=== PATIENT | female | born 1980 | race Caucasian/White ===

== ENCOUNTER 2016-09-20 22:03 | Inpatient (IN) | payer MEDICAID, OTHER ==
[~2016-09-20] VITALS: Ht 160 cm; Wt 65.0 kg
[~2016-09-20 22:03] MED LIST: FLUO-191 PO; GABA-533 PO; QUET200T PO
[2016-09-20 23:01] LABS: BASOPHILS % (AUTO) 0.6 % (0.0-2.0); EOSINOPHILS % (AUTO) 0.9 % (1.0-6.0); HEMATOCRIT 37.2 % (36-46); LYMPHOCYTES # (AUTO) 3.3 K/uL (1.0-4.8); LYMPHOCYTES % (AUTO) 23.9 % (22.0-44.0); MEAN CORPUSCULAR HEMOGLOBIN 28.4 pg (26.0-34.0); MEAN CORPUSCULAR HGB CONC 32.2 G/dL (31.0-37.0); MEAN CORPUSCULAR VOLUME 88 fL (80-100); MONOCYTES # (AUTO) 1.3 K/uL (0.1-1.0); MONOCYTES % (AUTO) 9.4 % (2.0-9.0); NEUTROPHILS # (AUTO) 9.1 K/uL (1.8-7.7); NEUTROPHILS % (AUTO) 65.2 % (40.0-70.0); PLATELET COUNT (AUTO) 324 K/uL (150-450); RED BLOOD CELL COUNT(AUTO) 4.22 MIL/uL (4.00-5.20); RED CELL DISTRIBUTION WIDTH 15.5 % (11.5-14.5); WHITE BLOOD COUNT (AUTO) 13.9 K/uL (4.5-11.0)
[2016-09-20 23:09] LABS: ANION GAP 9 mmol/L (8-16); CALCIUM, TOTAL 8.5 mg/dL (8.8-10.5); CARBON DIOXIDE 25 mmol/L (22-29); CHLORIDE 100 mmol/L (98-107); CREATININE 1.05 mg/dL (0.60-1.30); GLOMERULAR FILTR. RATE CALC 59 mL/min (>60); POTASSIUM 3.1 mmol/L (3.5-5.1); SODIUM SERUM 134 mmol/L (136-145); UREA NITROGEN, BLOOD 9 mg/dL (7-18)
[2016-09-20 23:16] LABS: ALANINE AMINOTRANSFERASE 65 U/L (12-78); ALBUMIN 3.6 g/dL (3.4-5.0); ASPARTATE AMINOTRANSFERASE 48 U/L (15-37); BILIRUBIN,TOTAL 0.3 mg/dL (0.1-1.0); TOTAL PROTEIN, SERUM 8.1 g/dL (6.4-8.2)
[2016-09-21] MEDS ORDERED: POTASSIUM CHLORIDE 10% 40 MEQ/30 ML LIQUID UDCUP PO ONE (01:15)
[2016-09-21] MEDS ORDERED: LORazepam 2 MG/ML VIAL IM ONE (01:15)
[2016-09-21] MEDS ORDERED: HALOPERIDOL LACTATE 5 MG/ML VIAL IM ONE (02:15)
[2016-09-21] MEDS ORDERED: DiphenhydrAMINE HCL 50 MG/ML VIAL IM ONE (02:15)
[2016-09-21] MEDS ORDERED: ZOLPIDEM TARTRATE 10 MG TABLET PO PRN (02:15)
[2016-09-21] MEDS ORDERED: HALOPERIDOL 5 MG TABLET PO PRN (02:15)
[2016-09-21 02:49] LABS: APPEARANCE,URINE CLOUDY (CLEAR); GLUCOSE, URINE (UA) NEGATIVE (NEGATIVE); KETONES,URINE NEGATIVE (NEGATIVE); LEUKOCYTE ESTERASE ,URINE TRACE (NEGATIVE); OCCULT BLOOD,URINE NEGATIVE (NEGATIVE); PH,URINE 5.5 (5.0-8.0); PROTEIN,URINE NEGATIVE (NEGATIVE)
[2016-09-21 02:53] LABS: ADD UA MICROSCOPIC YES
[2016-09-21 03:02] LABS: RBC,URINE 0-2 /HPF (0-2); SQUAMOUS EPITHELIAL CELL,UR Moderate /LPF (None Seen)
[2016-09-21] MEDS: LORazepam 2 MG TABLET PO PRN ×3 (03:02→18:27)
[2016-09-21 04:49] VITALS: BP 114/69
[2016-09-21] MEDS ORDERED: INFLUENZA VIRUS VACCINE QVS 2016-17 (3YR+)/PF 60 MCG/0.5 ML SYRINGE IM ONE (05:00)
[2016-09-21] MEDS: GABAPENTIN 400 MG CAPSULE PO SCH (18:25)
[2016-09-21] MEDS ORDERED: QUEtiapine FUMARATE 200 MG TABLET PO SCH (21:00)
[2016-09-22] MEDS: GABAPENTIN 400 MG CAPSULE PO SCH (08:32)
[2016-09-22] MEDS: LORazepam 2 MG TABLET PO PRN (08:45)
[2016-09-22] MEDS ORDERED: FLUoxetine HCL 20 MG CAPSULE PO SCH (09:00)
== END 2016-09-22 11:25 | disposition home or self-care (01) | DRG 750 ==
LOC: EMS 22:06 → B3A 09-21 02:30
DX: F25.0 Schizoaffective disorder, bipolar type (principal); R45.851 Suicidal ideations; N39.0 Urinary tract infection, site not specified; G40.909 Epilepsy, unspecified, not intractable, without status epilepticus; F32.9 Major depressive disorder, single episode, unspecified; F41.9 Anxiety disorder, unspecified; K21.9 Gastro-esophageal reflux disease without esophagitis; F43.10 Post-traumatic stress disorder, unspecified; S10.91XA Abrasion of unspecified part of neck, initial encounter; S00.81XA Abrasion of other part of head, initial encounter; S20.311A Abrasion of right front wall of thorax, initial encounter; N80.9 Endometriosis, unspecified; M79.7 Fibromyalgia; E87.6 Hypokalemia; R74.0 Nonspecific elevation of levels of transaminase and lactic acid dehydrogenase [LDH]; F17.210 Nicotine dependence, cigarettes, uncomplicated; F15.90 Other stimulant use, unspecified, uncomplicated; F11.90 Opioid use, unspecified, uncomplicated; Z79.899 Other long term (current) drug therapy; Z28.21 Immunization not carried out because of patient refusal; Z88.8 Allergy status to other drugs, medicaments and biological substances; Z59.0 Homelessness; Z91.013 Allergy to seafood; Z91.018 Allergy to other foods; Z98.890 Other specified postprocedural states; Z98.51 Tubal ligation status; Z71.51 Drug abuse counseling and surveillance of drug abuser; Z91.5 Personal history of self-harm; X58.XXXA Exposure to other specified factors, initial encounter; Y93.89 Activity, other specified; Y92.89 Other specified places as the place of occurrence of the external cause; Y99.8 Other external cause status
CPT/HCPCS: 96372; 99285; G0480; J2060

== ENCOUNTER 2017-04-13 20:13 | Inpatient (IN) | payer MEDICAID ==
[~2017-04-13] VITALS: Ht 157.5 cm; Wt 69.5 kg
[~2017-04-13 20:13] MED LIST changes: +ACAM333T7 PO; +GABA-531 PO; -GABA-533 PO; -QUET200T PO; +QUET200T29 PO
[2017-04-13] MEDS ORDERED: ZOLPIDEM TARTRATE 10 MG TABLET PO PRN (23:00)
[2017-04-13] MEDS ORDERED: LORazepam 2 MG TABLET PO PRN (23:00)
[2017-04-14 00:16] VITALS: BP 110/83
[2017-04-14] MEDS ORDERED: INFLUENZA VIRUS VACCINE QVS 2017-18 (3YR+)/PF 60 MCG/0.5 ML SYRINGE IM ONE (00:30)
[2017-04-14 08:25] VITALS: BP 115/68
[2017-04-14] MEDS ORDERED: PROMETHAZINE HCL 25 MG TABLET PO PRN (12:00)
[2017-04-14] MEDS: GABAPENTIN 400 MG CAPSULE PO SCH ×3 (13:00→20:03)
[2017-04-14] MEDS: PROMETHAZINE HCL 25 MG/ML VIAL IM PRN (16:06)
[2017-04-14 16:09] VITALS: BP 125/87
[2017-04-14] MEDS: DOXYCYCLINE 100 MG CAPSULE PO SCH (16:15)
[2017-04-14] MEDS ORDERED: QUEtiapine FUMARATE 300 MG TABLET PO SCH (21:00)
[2017-04-15 06:58] VITALS: BP 117/68
[2017-04-15] MEDS: PROMETHAZINE HCL 25 MG/ML VIAL IM PRN (07:15)
[2017-04-15 08:15] VITALS: BP 104/74
[2017-04-15 08:24] LABS: BASOPHILS # (AUTO) 0.05 K/uL (0.00-0.20); BASOPHILS % (AUTO) 0.6 % (0.0-2.0); EOSINOPHILS # (AUTO) 0.21 K/uL (0.00-0.70); EOSINOPHILS % (AUTO) 2.34 % (1.0-6.0); HEMATOCRIT 38.3 % (36-46); HEMOGLOBIN 12.4 g/dL (12.0-16.0); LYMPHOCYTES # (AUTO) 2.2 K/uL (1.0-4.8); LYMPHOCYTES % (AUTO) 25.2 % (22.0-44.0); MEAN CORPUSCULAR HGB CONC 32.4 G/dL (31.0-37.0); MEAN CORPUSCULAR VOLUME 86 fL (80-100); MONOCYTES # (AUTO) 0.8 K/uL (0.1-1.0); MONOCYTES % (AUTO) 9.1 % (2.0-9.0); NEUTROPHILS # (AUTO) 5.5 K/uL (1.8-7.7); NEUTROPHILS % (AUTO) 62.8 % (40.0-70.0); PLATELET COUNT (AUTO) 398 K/uL (150-450); RED BLOOD CELL COUNT(AUTO) 4.43 MIL/uL (4.00-5.20); WHITE BLOOD COUNT (AUTO) 8.8 K/uL (4.5-11.0)
[2017-04-15 08:45] LABS: HEMOGLOBIN A1C 5.5 % (4.5-6.2)
[2017-04-15] MEDS: GABAPENTIN 400 MG CAPSULE PO SCH (08:52)
[2017-04-15] MEDS: DOXYCYCLINE 100 MG CAPSULE PO SCH (08:52)
[2017-04-15] MEDS ORDERED: QUEtiapine FUMARATE 200 MG TABLET PO SCH (09:00)
[2017-04-15] MEDS ORDERED: ESCITALOPRAM OXALATE 20 MG TABLET PO SCH (09:00)
[2017-04-15 09:02] LABS: RBC MORPHOLOGY COMMENT ABNORMAL RBC MORPH
[2017-04-15 09:10] LABS: ALANINE AMINOTRANSFERASE 78 U/L (12-78); ANION GAP 5 mmol/L (8-16); ASPARTATE AMINOTRANSFERASE 56 U/L (15-37); BILIRUBIN,TOTAL 0.4 mg/dL (0.1-1.0); CARBON DIOXIDE 31 mmol/L (22-29); CHLORIDE 101 mmol/L (98-107); CHOL/HDL RATIO 2.1 (3.9-5.7); CREATININE 0.97 mg/dL (0.60-1.30); GLOMERULAR FILTR. RATE CALC > 60 mL/min (>60); POTASSIUM 4.5 mmol/L (3.5-5.1); SODIUM SERUM 137 mmol/L (136-145); TOTAL PROTEIN, SERUM 8.6 g/dL (6.4-8.2); UREA NITROGEN, BLOOD 18 mg/dL (7-18)
[2017-04-15] MEDS ORDERED: DOXY100C PO (09:30)
[2017-04-15] MEDS ORDERED: ESCI20TA PO (09:30)
[2017-04-15] MEDS ORDERED: QUET200T PO (09:30)
[2017-04-15] MEDS ORDERED: GABA-533 PO (09:30)
[2017-04-15] MEDS ORDERED: QUET300T2 PO (09:30)
== END 2017-04-15 10:45 | disposition home or self-care (01) | DRG 751 ==
LOC: B3A 23:47
PROVIDERS: ADMIT Psychiatry & Neurology Psychiatry; ATTEND Psychiatry & Neurology Psychiatry
DX: F33.2 Major depressive disorder, recurrent severe without psychotic features (principal); E87.1 Hypo-osmolality and hyponatremia; R45.851 Suicidal ideations; F11.20 Opioid dependence, uncomplicated; G62.9 Polyneuropathy, unspecified; L02.11 Cutaneous abscess of neck; F41.9 Anxiety disorder, unspecified; M06.9 Rheumatoid arthritis, unspecified; M79.7 Fibromyalgia; F17.200 Nicotine dependence, unspecified, uncomplicated; Z88.8 Allergy status to other drugs, medicaments and biological substances; Z59.0 Homelessness; Z88.5 Allergy status to narcotic agent; Z91.013 Allergy to seafood; Z91.018 Allergy to other foods; Z98.51 Tubal ligation status; D64.9 Anemia, unspecified; Z28.21 Immunization not carried out because of patient refusal; Z98.891 History of uterine scar from previous surgery; Z91.5 Personal history of self-harm
CPT/HCPCS: 83036; 84439; 84443; 87081; 90471; J2550

== ENCOUNTER 2017-04-14 13:24 | Emergency (ER) | payer MEDICAID, OTHER ==
[~2017-04-14] VITALS: Ht 157.5 cm; Wt 69.5 kg
[2017-04-14 13:38] VITALS: BP 129/77
[2017-04-14] MEDS ORDERED: DOXYCYCLINE 100 MG CAPSULE PO ONE (15:00)
[2017-04-15] MEDS ORDERED: GABA-533 PO (09:30)
[2017-04-15] MEDS ORDERED: DOXY100C PO (09:30)
[2017-04-15] MEDS ORDERED: ESCI20TA PO (09:30)
[2017-04-15] MEDS ORDERED: QUET200T PO (09:30)
[2017-04-15] MEDS ORDERED: QUET300T2 PO (09:30)
== END 2017-04-14 15:26 | disposition home or self-care (01) ==
LOC: EMS 13:27
DX: L02.11 Cutaneous abscess of neck (principal); F19.10 Other psychoactive substance abuse, uncomplicated; K21.9 Gastro-esophageal reflux disease without esophagitis; F17.210 Nicotine dependence, cigarettes, uncomplicated; F11.90 Opioid use, unspecified, uncomplicated; Z88.6 Allergy status to analgesic agent; Z91.013 Allergy to seafood; Z88.8 Allergy status to other drugs, medicaments and biological substances; Z91.018 Allergy to other foods
CPT/HCPCS: 99283

== ENCOUNTER 2017-06-02 16:17 | Inpatient (IN) | payer MEDICAID, OTHER ==
[~2017-06-02] VITALS: Ht 157.5 cm; Wt 63.9 kg
[~2017-06-02 16:17] MED LIST changes: -ACAM333T7 PO; +DOXY100C PO; +ESCI20TA PO; -FLUO-191 PO; -GABA-531 PO; +GABA-533 PO; +QUET200T PO; -QUET200T29 PO; +QUET300T2 PO
[2017-06-02] MEDS ORDERED: DIPH50 PO (16:37)
[2017-06-02 16:50] LABS: HEMATOCRIT 32.6 % (36-46); HEMOGLOBIN 10.9 g/dL (12.0-16.0); MEAN CORPUSCULAR HEMOGLOBIN 29.4 pg (26.0-34.0); MEAN CORPUSCULAR HGB CONC 33.5 G/dL (31.0-37.0); MEAN CORPUSCULAR VOLUME 88 fL (80-100); PLATELET COUNT (AUTO) 338 K/uL (150-450); RED BLOOD CELL COUNT(AUTO) 3.72 MIL/uL (4.00-5.20); RED CELL DISTRIBUTION WIDTH 18.2 % (11.5-14.5); WHITE BLOOD COUNT (AUTO) 6.7 K/uL (4.5-11.0)
[2017-06-02 16:59] LABS: ANION GAP 8 mmol/L (8-16); CALCIUM, TOTAL 8.9 mg/dL (8.8-10.5); CARBON DIOXIDE 28 mmol/L (22-29); CHLORIDE 104 mmol/L (98-107); CREATININE 0.72 mg/dL (0.60-1.30); GLOMERULAR FILTR. RATE CALC > 60 mL/min (>60); POTASSIUM 3.7 mmol/L (3.5-5.1); SODIUM SERUM 140 mmol/L (136-145); UREA NITROGEN, BLOOD 12 mg/dL (7-18)
[2017-06-02 17:05] LABS: ALANINE AMINOTRANSFERASE 34 U/L (12-78); ALBUMIN 3.1 g/dL (3.4-5.0); ASPARTATE AMINOTRANSFERASE 32 U/L (15-37); BILIRUBIN,TOTAL 0.2 mg/dL (0.1-1.0); TOTAL PROTEIN, SERUM 7.2 g/dL (6.4-8.2)
[2017-06-02 17:37] LABS: BAND NEUTROPHILS % (MANUAL) 3 % (1-5); LYMPHOCYTES % (MANUAL) 41 % (22-44); RBC MORPHOLOGY COMMENT ABNORMAL RBC MORPH; TOTAL CELLS COUNTED 100
[2017-06-02] MEDS ORDERED: DiphenhydrAMINE HCL 50 MG/ML VIAL IM ONE (17:45)
[2017-06-02] MEDS ORDERED: LORazepam 2 MG/ML VIAL IM ONE (17:45)
[2017-06-02] MEDS ORDERED: QUEtiapine FUMARATE 100 MG TABLET PO ONE (18:00)
[2017-06-02] MEDS ORDERED: ZOLPIDEM TARTRATE 10 MG TABLET PO PRN (18:30)
[2017-06-02] MEDS ORDERED: ACETAMINOPHEN 500 MG TABLET PO ONE (19:00)
[2017-06-02 19:20] VITALS: BP 130/80
[2017-06-02 19:37] VITALS: BP 130/80
[2017-06-02] MEDS ORDERED: ACETAMINOPHEN 500 MG TABLET PO PRN (20:30)
[2017-06-02] MEDS ORDERED: QUEtiapine FUMARATE 300 MG TABLET PO SCH (21:00)
[2017-06-02] MEDS ORDERED: GABAPENTIN 400 MG CAPSULE PO SCH (21:00)
[2017-06-02] MEDS: CEPHALEXIN MONOHYDRATE 500 MG CAPSULE PO SCH (21:17)
[2017-06-02] MEDS: QUEtiapine FUMARATE 300 MG TABLET PO SCH (21:18)
[2017-06-02] MEDS: LORazepam 2 MG TABLET PO PRN (21:18)
[2017-06-02] MEDS: GABAPENTIN 400 MG CAPSULE PO SCH (21:18)
[2017-06-03 06:24] VITALS: BP 116/86
[2017-06-03] MEDS: LORazepam 2 MG TABLET PO PRN (06:37)
[2017-06-03] MEDS: CEPHALEXIN MONOHYDRATE 500 MG CAPSULE PO SCH ×4 (07:42→23:07)
[2017-06-03] MEDS: QUEtiapine FUMARATE 200 MG TABLET PO SCH (07:42)
[2017-06-03] MEDS: GABAPENTIN 400 MG CAPSULE PO SCH ×4 (07:42→23:07)
[2017-06-03] MEDS: SULFAMETHOX/TRIMETH DS 800-160 MG/TABLET PO SCH ×2 (07:43→16:43)
[2017-06-03] MEDS: ESCITALOPRAM OXALATE 20 MG TABLET PO SCH (07:43)
[2017-06-03] MEDS: QUEtiapine FUMARATE 100 MG TABLET PO PRN ×2 (08:52→16:43)
[2017-06-03] MEDS ORDERED: QUEtiapine FUMARATE 200 MG TABLET PO SCH (09:00)
[2017-06-03] MEDS ORDERED: ESCITALOPRAM OXALATE 20 MG TABLET PO SCH (09:00)
[2017-06-03 09:53] VITALS: BP 124/70
[2017-06-03] MEDS ORDERED: DiphenhydrAMINE HCL 50 MG/ML VIAL IM ONE (12:30)
[2017-06-03] MEDS: LORazepam 1 MG TABLET PO PRN (16:43)
[2017-06-03] MEDS: QUEtiapine FUMARATE 300 MG TABLET PO SCH (23:06)
[2017-06-04] MEDS: LORazepam 1 MG TABLET PO PRN ×2 (07:08→11:11)
[2017-06-04 08:04] VITALS: BP 122/92
[2017-06-04] MEDS: QUEtiapine FUMARATE 200 MG TABLET PO SCH (08:19)
[2017-06-04] MEDS: GABAPENTIN 400 MG CAPSULE PO SCH ×4 (08:19→20:50)
[2017-06-04] MEDS: CEPHALEXIN MONOHYDRATE 500 MG CAPSULE PO SCH ×4 (08:19→20:50)
[2017-06-04] MEDS: ESCITALOPRAM OXALATE 20 MG TABLET PO SCH (08:20)
[2017-06-04] MEDS: SULFAMETHOX/TRIMETH DS 800-160 MG/TABLET PO SCH ×2 (08:20→16:35)
[2017-06-04] MEDS: QUEtiapine FUMARATE 100 MG TABLET PO PRN (09:16)
[2017-06-04] MEDS ORDERED: PROMETHAZINE HCL 25 MG/ML VIAL IM ONE (11:45)
[2017-06-04 18:07] VITALS: BP 117/76
[2017-06-04] MEDS: QUEtiapine FUMARATE 300 MG TABLET PO SCH (20:50)
[2017-06-05] MEDS: LORazepam 1 MG TABLET PO PRN ×3 (06:33→14:37)
[2017-06-05] MEDS: CEPHALEXIN MONOHYDRATE 500 MG CAPSULE PO SCH ×4 (07:39→21:00)
[2017-06-05] MEDS: QUEtiapine FUMARATE 200 MG TABLET PO SCH (07:39)
[2017-06-05] MEDS: SULFAMETHOX/TRIMETH DS 800-160 MG/TABLET PO SCH ×2 (07:39→16:17)
[2017-06-05] MEDS: ESCITALOPRAM OXALATE 20 MG TABLET PO SCH (07:39)
[2017-06-05] MEDS: GABAPENTIN 400 MG CAPSULE PO SCH ×4 (07:39→21:02)
[2017-06-05 08:05] VITALS: BP 140/92
[2017-06-05] MEDS: QUEtiapine FUMARATE 100 MG TABLET PO PRN ×2 (09:17→14:37)
[2017-06-05] MEDS ORDERED: ONDANSETRON HCL 4 MG TABLET PO PRN (13:15)
[2017-06-05 16:36] VITALS: BP 130/77
[2017-06-05] MEDS: QUEtiapine FUMARATE 300 MG TABLET PO SCH (21:02)
[2017-06-06] MEDS: LORazepam 1 MG TABLET PO PRN (07:38)
[2017-06-06] MEDS: GABAPENTIN 400 MG CAPSULE PO SCH ×2 (08:10→12:02)
[2017-06-06] MEDS: QUEtiapine FUMARATE 200 MG TABLET PO SCH (08:11)
[2017-06-06] MEDS: ESCITALOPRAM OXALATE 20 MG TABLET PO SCH (08:11)
[2017-06-06 08:17] VITALS: BP 137/101
[2017-06-06] MEDS: SULFAMETHOX/TRIMETH DS 800-160 MG/TABLET PO SCH (09:00)
[2017-06-06] MEDS: CEPHALEXIN MONOHYDRATE 500 MG CAPSULE PO SCH ×2 (09:00→12:02)
[2017-06-06] MEDS ORDERED: QUET200T PO (10:45)
[2017-06-06] MEDS ORDERED: BACTDSB PO (10:49)
[2017-06-06] MEDS ORDERED: CEPH500 PO (10:49)
== END 2017-06-06 12:30 | disposition home or self-care (01) | DRG 753 ==
LOC: EMS 16:18 → 3EI 19:00 → EMS 19:10 → 3EC 06-03 16:19
PROVIDERS: ADMIT Psychiatry & Neurology Psychiatry; ATTEND Psychiatry & Neurology Psychiatry
DX: F31.4 Bipolar disorder, current episode depressed, severe, without psychotic features (principal); E87.1 Hypo-osmolality and hyponatremia; R45.851 Suicidal ideations; B19.20 Unspecified viral hepatitis C without hepatic coma; D64.9 Anemia, unspecified; E87.6 Hypokalemia; F17.210 Nicotine dependence, cigarettes, uncomplicated; F43.10 Post-traumatic stress disorder, unspecified; K21.9 Gastro-esophageal reflux disease without esophagitis; L02.414 Cutaneous abscess of left upper limb; M06.9 Rheumatoid arthritis, unspecified; M79.7 Fibromyalgia; R45.850 Homicidal ideations; W19.XXXA Unspecified fall, initial encounter; Z59.0 Homelessness; Z91.5 Personal history of self-harm; Z91.013 Allergy to seafood; Z88.8 Allergy status to other drugs, medicaments and biological substances; Z91.018 Allergy to other foods
CPT/HCPCS: 87081; 96372; 99285; 99406; G0480; J1200; J2060; J2550